=== PATIENT | male | born 1955 | race Caucasian/White ===

== ENCOUNTER 2021-10-18 02:09 | Emergency (ER) | payer OTHER ==
[2021-10-18 04:54] LABS: BILIRUBIN 2+ mg/dL (NEGATIVE); BLOOD 3+ Ery/uL (NEGATIVE); CLARITY CLOUDY (CLEAR); COLOR RED (YELLOW); GLUCOSE (U) TRACE mg/dL (NORMAL); LEUKOCYTES TRACE Leu/uL (NEGATIVE); NITRITE POSITIVE (NEGATIVE); PROTEIN 3+ mg/dL (NEGATIVE); SPECIFIC GRAVITY 1.025 (1.001-1.030); pH 6.5 (5.0-9.0)
[2021-10-18 04:58] LABS: URINARY RBC TNTC
[2021-10-18 05:03] LABS: BASOPHIL 0.4 % (0-2); EOSINOPHIL 0.1 % (0-7); HGB 15.3 g/dl (13.2-18.0); LYMPHOCYTE 8.9 % (15-48); MCH 31.5 pg (25.0-31.0); MCV 92.8 fL (78.0-100.0); MONOCYTE 9.2 % (0-12); NEUTROPHIL 80.5 % (41-80); NRBC 0; PLT 163 K/uL (150-400); RBC 4.85 M/uL (4.70-6.00); WBC 15.9 K/uL (4.0-10.5)
[2021-10-18 05:09] LABS: INR 1.49 (0.9-1.2); PROTHROMBIN TIME 17.3 SECONDS (11.8-13.4); PTT 34.7 SECONDS (24.4-34.7)
[2021-10-18 05:12] LABS: BUN/CREAT RATIO (CALC) 11.4 RATIO; CREATININE 1.4 mg/dL (0.67-1.17); POTASSIUM 3.4 mmol/L (3.5-5.1)
[2021-10-18 07:52] LABS: CORONAVIRUS 2019 SARS-COV-2 NEGATIVE (NEGATIVE); INFLUENZA A NAA NEGATIVE (NEGATIVE)
[2021-10-18] MEDS ORDERED: PYRIDIUM100 MG PO (08:58)
[2021-10-18] MEDS ORDERED: VIBRAMYCIN100 MG PO (08:58)
== END 2021-10-18 09:15 | disposition home or self-care (01) ==
LOC: FER 02:09
PROVIDERS: Emergency Medicine Emergency Medical Services
DX: N30.01 Acute cystitis with hematuria (principal); I50.9 Heart failure, unspecified; I48.91 Unspecified atrial fibrillation; Z20.822 Contact with and (suspected) exposure to COVID-19; Z79.01 Long term (current) use of anticoagulants; Z88.1 Allergy status to other antibiotic agents; Z79.899 Other long term (current) drug therapy; Z95.810 Presence of automatic (implantable) cardiac defibrillator
CPT/HCPCS: 36415; 80048; 81001; 85025; 85610; 85730; 87076; 87088; 87186; J1170; J2405; J7030; U0002